=== PATIENT | female | born 1960 | race Caucasian/White ===

== ENCOUNTER 2017-09-11 09:42 | Inpatient (IN) | payer OTHER, MEDICARE ==
[~2017-09-11] VITALS: Ht 160 cm; Wt 69.5 kg
[~2017-09-11 09:42] MED LIST: ANAPROX DS550 MG PO; CIPROFLOXACIN500 MG PO
[2017-09-11 09:56] VITALS: BP 110/66
[2017-09-11 12:36] LABS: BASO % 0.2 % (0.0-1.0); HEMATOCRIT 43.4 % (37.0-47.0); HEMOGLOBIN 14.7 g/dl (12.0-16.0); LYMPH # 0.7 10*3/uL (1.3-4.4); LYMPH % 15.7 % (27.0-41.0); MEAN CELL VOLUME 93.7 fl (81.0-99.0); MEAN CORPUSCULAR HGB 31.7 pg (27.0-31.0); MEAN CORPUSCULAR HGB CONC 33.9 g/dl (33.0-37.0); MEAN PLATELET VOLUME 9.6 fl (9.6-12.3); MONO # 0.1 10*3/uL (0.1-1.0); MONO % 1.8 % (3.0-9.0); NEUT # 3.7 10*3/uL (2.3-7.9); NEUT % 81.9 % (47.0-73.0); PLATELET COUNT AUTOMATED 152 10*3/uL (130-400); RED BLOOD COUNT 4.63 10*6/uL (4.10-5.10); RED CELL DISTRI WIDTH 13.6 % (0-14.5); WHITE BLOOD COUNT 4.5 10*3/uL (4.8-10.8)
[2017-09-11 12:45] LABS: INTERNATIONAL NORM RATIO 1.1 (2.0-3.5)
[2017-09-11 12:54] LABS: ALBUMIN 3.4 gm/dl (3.1-4.5); ALKALINE PHOSPHATASE 117 U/L (45-117); BUN 10 mg/dl (7-24); CHLORIDE 100 mmol/L (98-107); CREATININE 0.79 mg/dL (0.55-1.02); POTASSIUM 3.9 mmol/L (3.5-5.1); SGOT/AST 62 IU/L (3-35); SGPT/ALT 35 U/L (12-78); SODIUM 133 mmol/L (136-145); TOTAL PROTEIN 7.6 gm/dL (6.4-8.2); TROPONIN I < 0.015 ng/ml (<0.045)
[2017-09-11 13:01] VITALS: BP 102/57
[2017-09-11 13:02] VITALS: BP 111/62
[2017-09-11] MEDS ORDERED: IBUPROFEN400 MG PO (13:04)
[2017-09-11] MEDS ORDERED: PEDIALYTE 1001000 ML PO (13:04)
[2017-09-11] MEDS ORDERED: TAMIFLU 75MG CA75 MG PO (13:05)
[2017-09-11] MEDS ORDERED: ATORVASTATIN CA10 M1 PO (13:05)
[2017-09-11 13:41] VITALS: BP 89/53
[2017-09-11] MEDS ORDERED: ASPIRIN ADULT L81 M1 PO (13:58)
[2017-09-11] MEDS ORDERED: LIPITOR40 MG PO (13:59)
[2017-09-11 16:00] VITALS: BP 93/55
[2017-09-11 20:00] VITALS: BP 105/58
[2017-09-12] VITALS: BP 90/52
[2017-09-12 07:19] LABS: MEAN CELL VOLUME 95.7 fl (81.0-99.0); MEAN CORPUSCULAR HGB 32.2 pg (27.0-31.0); MEAN CORPUSCULAR HGB CONC 33.6 g/dl (33.0-37.0); MEAN PLATELET VOLUME 10.1 fl (9.6-12.3); PLATELET COUNT AUTOMATED 122 10*3/uL (130-400); RED BLOOD COUNT 3.76 10*6/uL (4.10-5.10); RED CELL DISTRI WIDTH 13.8 % (0-14.5); WHITE BLOOD COUNT 3.7 10*3/uL (4.8-10.8)
[2017-09-12 07:20] LABS: HEMOGLOBIN 12.1 g/dl (12.0-16.0)
[2017-09-12 07:38] LABS: CHLORIDE 109 mmol/L (98-107); POTASSIUM 3.8 mmol/L (3.5-5.1); SODIUM 140 mmol/L (136-145)
[2017-09-12 07:55] LABS: PLATELET SUFFICIENCY LOW (NORMAL); TOTAL CELLS COUNTED 100 #CELLS
[2017-09-12 08:00] VITALS: BP 90/57
[2017-09-12 08:04] LABS: ACT PARTIAL THROMBO TIME 25.7 SECONDS (20.8-31.5)
[2017-09-12 08:12] LABS: ALBUMIN 2.6 gm/dl (3.1-4.5); ALKALINE PHOSPHATASE 83 U/L (45-117); BUN 6 mg/dl (7-24); CHOLESTEROL 82 mg/dL (<200); CREATININE 0.61 mg/dL (0.55-1.02); HDL CHOLESTEROL 30 mg/dl (40-60); LDL CHOLESTEROL 21 mg/dL (9-159); PHOSPHOROUS 2.1 mg/dL (2.5-4.9); SGOT/AST 46 IU/L (3-35); SGPT/ALT 26 U/L (12-78); TOTAL PROTEIN 5.9 gm/dL (6.4-8.2); TRIGLYCERIDES 155 mg/dl (<150); VLDL CHOLESTEROL 31 mg/dL (6-40)
[2017-09-12 08:54] LABS: VITAMIN D, 25-HYDROXY 13.5 ng/mL (30-100)
[2017-09-12 12:00] VITALS: BP 92/60
[2017-09-12 16:00] VITALS: BP 89/51
[2017-09-12 20:00] VITALS: BP 119/75
[2017-09-13] VITALS: BP 100/54
[2017-09-13 06:43] LABS: HEMATOCRIT 35.4 % (37.0-47.0); HEMOGLOBIN 11.8 g/dl (12.0-16.0); MEAN CELL VOLUME 95.9 fl (81.0-99.0); MEAN CORPUSCULAR HGB CONC 33.3 g/dl (33.0-37.0); PLATELET COUNT AUTOMATED 118 10*3/uL (130-400); RED BLOOD COUNT 3.69 10*6/uL (4.10-5.10); RED CELL DISTRI WIDTH 13.8 % (0-14.5); WHITE BLOOD COUNT 3.3 10*3/uL (4.8-10.8)
[2017-09-13 06:53] VITALS: BP 104/70
[2017-09-13 07:26] LABS: ALBUMIN 2.6 gm/dl (3.1-4.5); ALKALINE PHOSPHATASE 75 U/L (45-117); BUN 4 mg/dl (7-24); CHLORIDE 110 mmol/L (98-107); CREATININE 0.53 mg/dL (0.55-1.02); POTASSIUM 3.7 mmol/L (3.5-5.1); SGOT/AST 47 IU/L (3-35); SGPT/ALT 28 U/L (12-78); SODIUM 143 mmol/L (136-145); TOTAL PROTEIN 5.7 gm/dL (6.4-8.2)
[2017-09-13 07:43] LABS: BASOPHILS 1 % (0-1); BURR CELLS MODERATE; PLATELET SUFFICIENCY LOW (NORMAL); TOTAL CELLS COUNTED 100 #CELLS
[2017-09-13 08:00] VITALS: BP 102/64
[2017-09-13 12:00] VITALS: BP 100/62
[2017-09-13 16:00] VITALS: BP 96/63
[2017-09-13 20:00] VITALS: BP 107/66
[2017-09-14] VITALS: BP 121/78
[2017-09-14 07:45] LABS: HEMOGLOBIN 12.2 g/dl (12.0-16.0); MEAN CELL VOLUME 95.5 fl (81.0-99.0); MEAN CORPUSCULAR HGB 32.4 pg (27.0-31.0); MEAN CORPUSCULAR HGB CONC 33.9 g/dl (33.0-37.0); MEAN PLATELET VOLUME 10.4 fl (9.6-12.3); PLATELET COUNT AUTOMATED 134 10*3/uL (130-400); RED BLOOD COUNT 3.77 10*6/uL (4.10-5.10); RED CELL DISTRI WIDTH 13.6 % (0-14.5); WHITE BLOOD COUNT 3.4 10*3/uL (4.8-10.8)
[2017-09-14 08:00] VITALS: BP 99/63
[2017-09-14 08:14] LABS: ALBUMIN 2.8 gm/dl (3.1-4.5); BUN 5 mg/dl (7-24); CHLORIDE 109 mmol/L (98-107); CREATININE 0.61 mg/dL (0.55-1.02); POTASSIUM 3.6 mmol/L (3.5-5.1); SGOT/AST 50 IU/L (3-35); SGPT/ALT 34 U/L (12-78); SODIUM 142 mmol/L (136-145); TOTAL PROTEIN 6.5 gm/dL (6.4-8.2)
[2017-09-14 08:15] LABS: ALKALINE PHOSPHATASE 86 U/L (45-117)
[2017-09-14 08:25] LABS: ATYPICAL LYMPHS 2 % (0-0); BURR CELLS FEW; PLATELET SUFFICIENCY NORMAL (NORMAL); TOTAL CELLS COUNTED 100 #CELLS
[2017-09-14 12:00] VITALS: BP 113/73
[2017-09-14] MEDS ORDERED: TAMIFLU 75MG CA75 MG PO (13:21)
[2017-09-14] MEDS ORDERED: VIBRAMYCIN100 MG PO (13:21)
[2017-09-14] MEDS ORDERED: VITAMIN D-32000 UNIT PO (13:21)
== END 2017-09-14 14:23 | disposition home or self-care (01) | DRG 871 ==
LOC: ED 09:42 → 5E 12:23 → EDHOLD 12:23 → 5E 12:43
PROVIDERS: Family Medicine; Internal Medicine; Physician Assistant
DX: A41.9 Sepsis, unspecified organism (principal); J10.00 Influenza due to other identified influenza virus with unspecified type of pneumonia; K21.9 Gastro-esophageal reflux disease without esophagitis; E78.5 Hyperlipidemia, unspecified; E55.9 Vitamin D deficiency, unspecified; Z96.642 Presence of left artificial hip joint; Z72.0 Tobacco use; Z71.6 Tobacco abuse counseling; Z79.82 Long term (current) use of aspirin; Z79.899 Other long term (current) drug therapy; Z98.51 Tubal ligation status; Z90.49 Acquired absence of other specified parts of digestive tract; Z83.3 Family history of diabetes mellitus; Z80.9 Family history of malignant neoplasm, unspecified